=== PATIENT | male | born 1995 | race Asian ===

== ENCOUNTER 2018-10-01 01:56 | Emergency (ER) | payer OTHER ==
--- NOTE | 2018-10-01 02:30 | ED ---
Complex/Multi-Sys Presentation - HPI Summary HPI Summary: This patient is a 22 year old M presenting to [facility] with request for post- exposure HIV prophylaxis tx. Patient reports that he had sex with a girl for the first time at 17:30 yesterday and notes that his partner was bleeding during sex. The patient reports that he used a condom but he is apprehensive about HIV. The patient notes that he did not know his partner very well but she denied having any STDs. The patient rates the pain 0/10 in severity. Symptoms aggravated by nothing. Symptoms alleviated by nothing. Patient denies any symptoms. Patient denies any other medical problems or taking any medications. - History Of Current Complaint Chief Complaint: EDGeneral Time Seen by Provider: 10/01/18 02:20 Hx Obtained From: Patient Onset/Duration: Resolved Severity Currently: None Location: Negative Aggravating Factor(s): nothing Alleviating Factor(s): nothing - Allergies/Home Medications Allergies/Adverse Reactions: Allergies Allergy/AdvReac Type Severity Reaction Status Date / Time No Known Allergies Allergy Verified 10/01/18 02:05 PMH/Surg Hx/FS Hx/Imm Hx Endocrine/Hematology History: Denies: Hx Diabetes Cardiovascular History: Denies: Hx Hypertension - Surgical History Surgery Procedure, Year, and Place: none Infectious Disease History: No Infectious Disease History: Denies: Traveled Outside the [place] in Last 30 Days - Family History Known Family History: Negative: Diabetes - Social History Occupation: Student Review of Systems Negative: Fever Negative: Epistaxis Negative: Cough Negative: Vomiting Negative: Rash All Other Systems Reviewed And Are Negative: Yes Physical Exam - Summary Physical Exam Summary: Appearance: Well-appearing, Well-nourished, lying in bed comfortably Skin: Warm, dry, no obvious rash Eyes: sclera anicteric, no conjunctival pallor ENT: mucous membranes moist, pharynx appears normal Neck: Supple, nontender Respiratory: Clear to auscultation, no signs of respiratory distress Cardiovascular: Normal S1, S2. No murmurs. Normal distal pulses in tibial and radial bilaterally. Abdomen: Soft, nontender, normal active bowel sounds present Musculoskeletal: Normal, Strength/ROM Intact Neurological: A&Ox3, awake and alert, mentation is normal, speech is fluent and appropriate Psychiatric: affect is normal, does not appear anxious or depressed Triage Information Reviewed: Yes Vital Signs On Initial Exam: Initial Vitals Temp Pulse Resp BP Pulse Ox 99.8 F 95 16 145/76 98 10/01/18 01:57 10/01/18 01:57 10/01/18 01:57 10/01/18 01:57 10/01/18 01:57 Vital Signs Reviewed: Yes Diagnostics - Vital Signs Vital Signs Temp Pulse Resp BP Pulse Ox 10/01/18 01:57 99.8 F 95 16 145/76 98 - Laboratory Lab Statement: Any lab studies that have been ordered have been reviewed, and results considered in the medical decision making process. Complex Multi-Symp Course/Dx Course Of Treatment: This patient is a 22 year old M presenting to [facility] with request for post-exposure HIV prophylaxis tx. Patient reports that he had sex with a girl for the first time at 17:30 yesterday and notes that his partner was bleeding during sex. The patient reports that he used a condom but he is apprehensive about HIV. The patient notes that he did not know his partner very well but she denied having any STDs. Patient will be discharged with prescription for Isentress and Truvada and follow up from PCP. The patient is agreeable with this plan. 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 Discharge - Sign-Out/Discharge Documenting (check all that apply): Patient Departure - Discharge Plan Condition: Stable Disposition: HOME Prescriptions: Raltegravir* [Isentress*] 400 mg PO BID #56 tab Tenofovir/Emtricitab 200/300 * [Truvada 200/300 mg*] 1 tab PO DAILY #28 tab Patient Education Materials: HIV Transmission (ED) Referrals: [facility] [Outside] - Billing Disposition and Condition Condition: STABLE Disposition: Home - Attestation Statements Document Initiated by Chau: Yes Documenting Scribe: Rosalba Lagunas Provider For Whom Chau is Documenting (Include Credential): Carlos March MD Scribe Attestation: Rosalba Cardona scribed for Carlos Mrach MD on 10/02/18 at 0658. Scribe Documentation Reviewed: Yes Provider Attestation: The documentation as recorded by the Rosalba harry accurately reflects the service I personally performed and the decisions made by me, Carlos March MD Status of Scribe Document: Viewed
[2018-10-01 02:33] VITALS: BP 131/83
--- NOTE | 2018-10-01 09:32 | PN ---
Progress Note - Progress Note Date of Service: 10/01/18 Note: Pt. seen in ED earlier today by Dr. March for body fluid post exposure treatment. Dr. March rx Truvada and Isentress. Pharmacist called today from [facility] and states that rx was for 28 days but they can only fill a 30 day supplies due to packaging. Verbal order was given for 30 day supply.
== END 2018-10-01 02:33 | disposition home or self-care (01) ==
LOC: ED 01:56
DX: Z20.6 Contact with and (suspected) exposure to human immunodeficiency virus [HIV] (principal); Z77.21 Contact with and (suspected) exposure to potentially hazardous body fluids
CPT/HCPCS: 99282